=== PATIENT | female | born 1985 | race American Indian/Alaskan Native ===

== ENCOUNTER 2017-06-07 17:30 | Emergency (ER) | payer BC ==
[2017-06-07 17:41] VITALS: RESP 18; TEMP 98.8; O2SAT 100
--- NOTE | 2017-06-07 19:34 | C.PDOC ---
History Of Present Illness 31 year old female who presents to the ER with a complaint of vaginal bleeding for the past 8-9 days. Patient reports she had a regular menstrual period last month. Denies any pain, dysuria, or hematuria. Chief Complaint (Nursing): Female Genitourinary History Per: Patient History/Exam Limitations: no limitations Onset/Duration Of Symptoms: Days Current Symptoms Are (Timing): Still Present Associated Symptoms: denies: Fever, Chills, Urinary Symptoms Alleviating Factors: None Recent travel outside of the [place]: No Abnormal Vaginal Bleeding: Yes Past Medical History Reviewed: Historical Data, Nursing Documentation, Vital Signs Vital Signs: Last Vital Signs Temp 98.8 F 06/07/17 17:40 Pulse 63 06/07/17 22:26 Resp 18 06/07/17 22:26 BP 137/86 06/07/17 22:26 Pulse Ox 100 06/07/17 22:26 - Medical History PMH: Migraine Surgical History: No Surg Hx Family History: States: Unknown Family Hx - Social History Hx Tobacco Use: No Hx Alcohol Use: No Hx Substance Use: No - Immunization History Hx Tetanus Toxoid Vaccination: No Hx Influenza Vaccination: Yes Hx Pneumococcal Vaccination: No Review Of Systems Constitutional: Negative for: Fever, Chills Gastrointestinal: Negative for: Abdominal Pain Genitourinary: Positive for: Vaginal Bleeding. Negative for: Dysuria, Hematuria Physical Exam - Physical Exam Appears: Non-toxic, No Acute Distress Skin: Normal Color, Warm, Dry Head: Atraumatic, Normacephalic Oral Mucosa: Moist Chest: Symmetrical, No Tenderness Cardiovascular: Rhythm Regular, No Murmur Respiratory: Normal Breath Sounds, No Rales, No Rhonchi, No Wheezing Gastrointestinal/Abdominal: Soft, Tenderness (Mild hypogastric) Pelvic: No Vaginal Bleeding, No Cervical Motion Tenderness, No Cervix Open, No Adnexal Tenderness, Other (Minimal blood in the vaginal vault) Neurological/Psych: Oriented x3, Normal Speech, Normal Cognition ED Course And Treatment - Laboratory Results Result Diagrams: 06/07/17 21:02 06/07/17 21:02 O2 Sat by Pulse Oximetry: 100 (Room air) Pulse Ox Interpretation: Normal Progress Note: Blood work, urinalysis, and pelvic US ordered. Disposition Counseled Patient/Family Regarding: Diagnosis - Disposition Referrals: [facility] [Outside] Disposition: HOME/ ROUTINE Disposition Time: 22:30 Condition: STABLE Instructions: Dysfunctional Uterine Bleeding (ED), Ovarian Cyst (ED) Forms: [employer] (Russian) - POA Present On Arrival: None - Clinical Impression Clinical Impression: Ovarian cyst, Dysfunctional uterine bleeding - Scribe Statement The provider has reviewed the documentation as recorded by the Scribe Alec Joy All medical record entries made by the Scribe were at my direction and personally dictated by me. I have reviewed the chart and agree that the record accurately reflects my personal performance of the history, physical exam, medical decision making, and the department course for this patient. I have also personally directed, reviewed, and agree with the discharge instructions and disposition.
[2017-06-07 21:08] LABS: BASO # 0.1 K/uL (0.0-0.2); BASO % 1.3 % (0.0-2.0); EOS # 0.1 K/uL (0.0-0.7); EOS % 1.6 % (0.0-4.0); HEMATOCRIT 40.5 % (34.0-47.0); LYMPH # 3.3 K/uL (1.0-4.3); LYMPH % 50.8 % (20.0-40.0); MEAN CELL VOLUME 90.2 fL (81.0-99.0); MEAN CORPUSCULAR HEMOGLOBIN 31.3 pg (27.0-31.0); MEAN CORPUSCULAR HGB CONC 34.7 g/dL (33.0-37.0); MEAN PLATELET VOLUME 7.9 fL (7.2-11.7); MONO # 0.5 K/uL (0.0-0.8); NRBC % 0.1 % (0.0-2.0); RED CELL DISTRIBUTION WIDTH 13.1 % (11.5-14.5); WHITE BLOOD COUNT 6.5 K/uL (4.8-10.8)
[2017-06-07 21:17] LABS: CHLORIDE 103 mmol/L (98-107); SODIUM 139 mmol/L (132-148)
[2017-06-07 21:18] LABS: POTASSIUM 3.6 mmol/L (3.6-5.2)
[2017-06-07 21:20] LABS: ALB/GLOB RATIO 1.2 (1.0-2.1); ALKALINE PHOSPHATASE 53 U/L (38-126); ALT/SGPT 34 U/L (9-52); AST/SGOT 20 U/L (14-36); BILIRUBIN,TOTAL 0.4 mg/dL (0.2-1.3); BLOOD UREA NITROGEN 4 mg/dL (7-17); CARBON DIOXIDE 24 mmol/L (22-30); GFR AFRICAN-AMERICAN > 60; GLUCOSE,RANDOM 102 mg/dL (65-105); TOTAL PROTEIN 7.1 g/dL (6.3-8.3)
[2017-06-07 21:25] LABS: INR 1.1
[2017-06-07 22:26] VITALS: BP 137/86; PULSE 63
--- NOTE | 2017-06-08 09:14 | US ---
HISTORY: vaginal bleed COMPARISON: None available. TECHNIQUE: Real-time transabdominal pelvic ultrasound was performed. In addition a transvaginal pelvic ultrasound was necessary to better depict pelvic anatomy. FINDINGS: UTERUS: Measures 8.4 x 4.8 x 5.7 cm. Retroverted. ENDOMETRIUM: Measures 4 mm in diameter. CERVIX: No cervical abnormality identified. RIGHT OVARY: Measures 3.9 x 2.4 x 3.6 cm. Blood flow is demonstrated. 1.6 x 0.8 x 1.5 cm hypoechoic lesion. LEFT OVARY: Measures 4.2 x 2.6 x 2.8 cm. Blood flow is demonstrated. FREE FLUID: Small pelvic free fluid. OTHER FINDINGS: None. IMPRESSION: Probable right ovarian follicle/cyst. Small pelvic free fluid. Preliminary impression was provided by virtual radiologic.
== END 2017-06-07 22:51 | disposition home or self-care (01) ==
LOC: C.ER 17:30
DX: N83.209 Unspecified ovarian cyst, unspecified side (principal); N93.8 Other specified abnormal uterine and vaginal bleeding

== ENCOUNTER 2018-04-11 11:17 | Emergency (ER) | payer BC ==
[2018-04-11 11:27] VITALS: O2SAT 99
[2018-04-11 12:24] LABS: HCG,QUALITATIVE URINE NEGATIVE (NEGATIVE)
[2018-04-11 12:33] LABS: SQUAMOUS EPITHIAL 6 /hpf (0-5); URINE BILIRUBIN NEGATIVE (NEGATIVE); URINE BLOOD NEGATIVE (NEGATIVE); URINE CLARITY Clear (Clear); URINE COLOR Yellow (YELLOW); URINE GLUCOSE (UA) NORMAL (Normal); URINE LEUKOCYTE ESTERASE TRACE Leu/uL (Negative); URINE PROTEIN NEGATIVE (NEGATIVE)
[2018-04-11] MEDS ORDERED: Sodium Chloride 0.9% 1,000 ML IV STA (12:38)
[2018-04-11] MEDS ORDERED: Sodium Chloride 0.9% 1,000 ML ONE (12:42)
[2018-04-11 12:52] LABS: EOS # 0.1 K/uL (0.0-0.7); EOS % 2.8 % (0.0-4.0); HEMOGLOBIN 14.9 g/dL (11.0-16.0); LYMPH # 2.3 K/uL (1.0-4.3); LYMPH % 49.5 % (20.0-40.0); MEAN CELL VOLUME 89.9 fL (81.0-99.0); MEAN CORPUSCULAR HEMOGLOBIN 31.3 pg (27.0-31.0); MEAN CORPUSCULAR HGB CONC 34.8 g/dL (33.0-37.0); MEAN PLATELET VOLUME 8.4 fL (7.2-11.7); MONO # 0.3 K/uL (0.0-0.8); MONO % 6.1 % (0.0-10.0); NEUT # 1.9 K/uL (1.8-7.0); NEUT % 40.6 % (50.0-75.0); NRBC % 0.1 % (0.0-2.0); RBC 4.76 Mil/uL (3.80-5.20); RED CELL DISTRIBUTION WIDTH 13.1 % (11.5-14.5); WHITE BLOOD COUNT 4.7 K/uL (4.8-10.8)
[2018-04-11 13:31] LABS: ALB/GLOB RATIO 1.2 (1.0-2.1); ALBUMIN 4.1 g/dL (3.5-5.0); ALT/SGPT 33 U/L (9-52); AST/SGOT 30 U/L (14-36); BLOOD UREA NITROGEN 8 mg/dL (7-17); CALCIUM 8.7 mg/dl (8.6-10.4); GFR AFRICAN-AMERICAN > 60; GFR NON-AFRICAN AMERICAN > 60
[2018-04-11 14:16] VITALS: BP 124/81; PULSE 70; RESP 17; TEMP 98.4
--- NOTE | 2018-04-11 15:28 | US ---
HISTORY: vaginal bleeding COMPARISON: None available. TECHNIQUE: Transabdominal and endovaginal ultrasound examination of the pelvis was performed. FINDINGS: UTERUS: Measures 10.5 x 5.6 x 6.6 cm. The uterus is retroverted and heterogeneous. No fibroid or other mass lesion seen. ENDOMETRIUM: Measures 6 mm in diameter. Unremarkable. CERVIX: No cervical abnormality identified. RIGHT OVARY: Measures 3.6 x 2.4 x 3.2 cm. No solid mass. Normal flow. LEFT OVARY: Measures 3.5 x 2.6 x 2.7 cm. No solid mass. Normal flow. FREE FLUID: Small amount of free fluid noted. OTHER FINDINGS: None. IMPRESSION: Heterogeneous mildly enlarged retroverted uterus without evidence of discrete mass. No evidence of intrauterine . No evidence of acute pathology in the adnexa. Small amount of free fluid in the cul de sac.
--- NOTE | 2018-04-11 16:02 | C.PDOC ---
History Of Present Illness 32 y/o female presents to ED for complaints of vaginal bleeding that began 5 days ago. Patient also reports she started feeling chest discomfort but denies chest pain or SOB. Patient states LNMP was January 2018. Patient also states she was seen by [facility] doctor 2 weeks ago that told her she was , she states the doctor "saw something in the uterus but was not sure what it was." Denies pain or any other physical complaints. Time Seen by Provider: 04/11/18 12:13 Chief Complaint (Nursing): Female Genitourinary History Per: Patient History/Exam Limitations: no limitations Onset/Duration Of Symptoms: Days (5) Current Symptoms Are (Timing): Still Present Associated Symptoms: denies: Fever, Chills, Nausea, Vomiting, Constipation Recent travel outside of the [place]: No Abnormal Vaginal Bleeding: Yes Last Menstral Period: 02/09 Past Medical History Reviewed: Historical Data, Nursing Documentation, Vital Signs Vital Signs: Last Vital Signs Temp 98.4 F 04/11/18 14:16 Pulse 70 04/11/18 14:16 Resp 17 04/11/18 14:16 BP 124/81 04/11/18 14:16 Pulse Ox 99 04/11/18 16:28 - Medical History PMH: Migraine Surgical History: No Surg Hx Family History: States: Unknown Family Hx - Social History Hx Tobacco Use: No Hx Alcohol Use: No Hx Substance Use: No - Immunization History Hx Tetanus Toxoid Vaccination: Yes Hx Influenza Vaccination: No Hx Pneumococcal Vaccination: No Review Of Systems Constitutional: Negative for: Fever, Chills Cardiovascular: Negative for: Chest Pain Respiratory: Negative for: Shortness of Breath Gastrointestinal: Negative for: Nausea, Vomiting, Abdominal Pain, Diarrhea Genitourinary: Positive for: Vaginal Bleeding. Negative for: Dysuria Skin: Negative for: Rash Neurological: Negative for: Weakness, Numbness Physical Exam - Physical Exam Appears: Non-toxic, No Acute Distress Skin: Warm, Dry Head: Atraumatic, Normacephalic Eye(s): bilateral: Normal Inspection, PERRL, EOMI Oral Mucosa: Moist Neck: Supple Chest: Symmetrical, No Tenderness Cardiovascular: Rhythm Regular, No Murmur Respiratory: Normal Breath Sounds, No Decreased Breath Sounds, No Rales, No Rhonchi, No Wheezing Gastrointestinal/Abdominal: Soft, No Tenderness Extremity: Normal ROM Extremity: Bilateral: Atraumatic, Normal Color And Temperature, Normal ROM Neurological/Psych: Oriented x3, Normal Speech Gait: Steady ED Course And Treatment - Laboratory Results Result Diagrams: 04/11/18 12:45 04/11/18 12:45 O2 Sat by Pulse Oximetry: 99 (RA) Pulse Ox Interpretation: Normal - CT Scan/US Abdomen/Pelvis/Transvaginal US Other Rad Studies (CT/US): Read By Radiologist, Radiology Report Reviewed CT/US Interpretation: HISTORY: vaginal bleeding. COMPARISON: None available. TECHNIQUE: Transabdominal and endovaginal ultrasound examination of the pelvis was performed. FINDINGS: UTERUS: Measures 10.5 x 5.6 x 6.6 cm. The uterus is retroverted and heterogeneous. No fibroid or other mass lesion seen. ENDOMETRIUM: Measures 6 mm in diameter. Unremarkable. CERVIX: No cervical abnormality identified. RIGHT OVARY: Measures 3.6 x 2.4 x 3.2 cm. No solid mass. Normal flow. LEFT OVARY: Measures 3.5 x 2.6 x 2.7 cm. No solid mass. Normal flow. FREE FLUID: Small amount of free fluid noted. OTHER FINDINGS: None. IMPRESSION: Heterogeneous mildly enlarged retroverted uterus without evidence of discrete mass. No evidence of intrauterine . No evidence of acute pathology in the adnexa. Small amount of free fluid in the cul de sac. Progress Note: Administered IV fluids. Ordered blood work, urinalysis and Pelvis/Transvaginal US. Negative UCG and BetaHCG. pelvic US without IUP or any evidence of retained products of conception. Patient is stable to be d/c home. copies of labs and US given to the patient. She was instructing to f/u with OBGYN and to return to0 ED if feels worse. Upon re-evaluation, patient is feeling much better and is stable for discharge. Patient given instructions and is in agreement. Patient is medically stable and ready for discharge. Disposition - Disposition Disposition: HOME/ ROUTINE Disposition Time: 16:14 Condition: STABLE Additional Instructions: Follow up with PMD and OBGYN within 1-2 days. Return to ED if feel worse. Instructions: Miscarriage (DC) Forms: [employer] (Kosovan) - Clinical Impression Clinical Impression: Vaginal bleeding - PA / LDR RN / Resident Statement MD/DO has reviewed & agrees with the documentation as recorded. - Scribe Statement The provider has reviewed the documentation as recorded by the Germanibyohana Cortes All medical record entries made by the Germanibyohana were at my direction and personally dictated by me. I have reviewed the chart and agree that the record accurately reflects my personal performance of the history, physical exam, medical decision making, and the department course for this patient. I have also personally directed, reviewed, and agree with the discharge instructions and disposition.
== END 2018-04-11 16:26 | disposition home or self-care (01) ==
LOC: C.ER 11:17
DX: N93.9 Abnormal uterine and vaginal bleeding, unspecified (principal)
CPT/HCPCS: 76830; 76856; 80053; 81001; 84702; 84703; 85025; 85378; 96360; 99285; J7030